=== PATIENT | male | born 1980 | race African-American/Black ===

== ENCOUNTER 2018-06-08 20:09 | Emergency (ER) | payer BC ==
[2018-06-08] MEDS ORDERED: ceFAZolin 2 GM in NACL 0.9% 100 ML IV ONE (20:35)
--- NOTE | 2018-06-08 20:42 | Emergency Department Report ---
- General Chief Complaint: Wound/Laceration Stated Complaint: L HAND LACERATION Time Seen by Provider: 06/08/18 20:34 Source: patient Mode of arrival: Ambulatory Limitations: No Limitations - History of Present Illness Initial Comments: 37-year-old male presents to the emergency room for left hand laceration. Patient states he was using a circular saw while fixing a door in his home. This happened approximately 8 PM tonight. Patient reports that his pain to 5 out of 10. Patient reports no past medical history currently takes no medications on a daily basis and has no known drug allergies. -: This evening Extremity Location: Left: Hand (webspace between the first and second digit) Place: home Patient Tetanus UTD: No Context: accidental Associated Symptoms: pain Treatments Prior to Arrival: bandage - Related Data Allergies Allergy/AdvReac Type Severity Reaction Status Date / Time No Known Allergies Allergy Unverified 06/08/18 22:15 ED Review of Systems ROS: Stated complaint: L HAND LACERATION Other details as noted in HPI Comment: All other systems reviewed and negative Skin: other (cut to left hand) ED Past Medical Hx - Past Medical History Previous Medical History?: No - Surgical History Past Surgical History?: No - Social History Smoking Status: Never Smoker Substance Use Type: None ED Physical Exam - General Limitations: No Limitations General appearance: alert, in no apparent distress - Head Head exam: Present: atraumatic, normocephalic - Eye Eye exam: Present: normal appearance, EOMI - ENT ENT exam: Present: mucous membranes moist - Expanded Upper Extremity Exam Left Shoulder Exam: Present: normal inspection Upper Arm exam: Present: normal inspection Elbow exam: Present: normal inspection Hand Wrist exam: Present: tenderness, swelling, laceration Neuro motor exam: Present: thumb adduction intact. Absent: thumb opposition intact, thumb IP flexion intact - Neurological Exam Neurological exam: Present: alert, oriented X3 ED Course Vital Signs 06/08/18 21:09 Temperature 97.9 F Pulse Rate 67 Respiratory 18 Rate Blood Pressure 125/79 O2 Sat by Pulse 98 Oximetry - Reevaluation(s) Reevaluation #1: 06/08/18 23:33 Spoke to at [facility] will send patient to [facility] to be eval by hand Resident. ED Medical Decision Making - Radiology Data Radiology results: report reviewed Patient: DANISHA HERNANDEZ MR#: [id number] : 1980 Acct:[id number] Age/Sex: 37 / M ADM Date: 06/08/18 Loc: ED Attending Dr: Ordering Physician: SHANTA JANG Date of Service: 06/08/18 Procedure(s): XR hand 3+V LT Accession Number(s): [id number] cc: SHANTA JANG Fluoro Time In Minutes: PROCEDURE: XR HAND 3+V LT TECHNIQUE: AP, lateral, and oblique views of the left hand HISTORY: Left hand laceration with soft COMPARISONS: None . FINDINGS: Along the first metacarpal shaft, there is subtle irregularity of the cortex thais ng the radial margin which may represent a small avulsion fracture. However, this is partially obscured by overlying bandaging There is no evidence for dislocation. No radiopaque foreign bodies are seen. Bony mineralization is normal and joint spaces are maintained. IMPRESSION: First metacarpal shaft cortical irregularity which may represent a fracture. However, this is somewhat obscured by overlying bandaging. This document is electronically signed by Farzaneh Barros MD., June 08 2018 10:40:21 PM ET Transcribed By: [facility] Dictated By: FARZANEH BARROS MD Electronically Authenticated By: FARZANEH BARROS MD Signed Date/Time: 06/08/182243 DD/ 34 TD/TT: 06/08/182147 - Medical Decision Making Patient's been evaluated by this provider and [facility]. Patient is given Ancef 2 g IV patient is given morphine 4 mg IV patient's been given tetanus vaccine IM. Dr. Pettit evaluated patient as well recommends patient to be evaluated at [facility] will do ER to ER for patient to be evaluated by our hand specialist residents. The patient verbalized understanding. Critical care attestation.: If time is entered above; I have spent that time in minutes in the direct care of this critically ill patient, excluding procedure time. ED Disposition Clinical Impression: Laceration of left hand involving tendon Qualifiers: Encounter type: initial encounter Qualified Code(s): S61.412A - Laceration without foreign body of left hand, initial encounter; S66.922A - Laceration of unspecified muscle, fascia and tendon at wrist and hand level, left hand, initial encounter Disposition: DC/TX-70 ANOTHER TYPE HLTHCARE Is pt being admited?: No Does the pt Need Aspirin: No Condition: Stable
[2018-06-08] MEDS ORDERED: BOOSTRIX IM ONE (20:43)
[2018-06-08] MEDS ORDERED: MORPHINE IV ONE (21:06)
[2018-06-08] MEDS ORDERED: ZOFRAN IV ONE (21:06)
--- NOTE | 2018-06-08 22:44 | XRay Report ---
PROCEDURE: XR HAND 3+V LT TECHNIQUE: AP, lateral, and oblique views of the left hand HISTORY: Left hand laceration with soft COMPARISONS: None . FINDINGS: Along the first metacarpal shaft, there is subtle irregularity of the cortex along the radial margin which may represent a small avulsion fracture. However, this is partially obscured by overlying hernandez ging There is no evidence for dislocation. No radiopaque foreign bodies are seen. Bony mineralization is n ormal and joint spaces are maintained. IMPRESSION: First metacarpal shaft cortical irregularity which may represent a fracture. However, this is somewha t obscured by overlying bandaging. This document is electronically signed by Farzaneh Barros MD., June 08 2018 10:40:21 PM ET
[2018-06-09] MEDS ORDERED: NACL 0.9% 500 ML IR ONE (00:13)
[2018-06-09] MEDS ORDERED: TYLENOL PO ONE (01:43)
[2018-06-09] MEDS ORDERED: TYLENOL ONE (01:44)
[2018-06-09 02:33] VITALS: BP 111/68
== END 2018-06-09 03:00 | disposition other institution (70) ==
LOC: ED 20:09
DX: S61.412A Laceration without foreign body of left hand, initial encounter (principal); S66.922A Laceration of unspecified muscle, fascia and tendon at wrist and hand level, left hand, initial encounter; W45.8XXA Other foreign body or object entering through skin, initial encounter; Y93.89 Activity, other specified; Y92.89 Other specified places as the place of occurrence of the external cause; Y99.8 Other external cause status
CPT/HCPCS: 73130; 90471; 90715; 96365; 96375; 99285; J0690; J2270; J2405